=== PATIENT | male | born 1945 | race Caucasian/White ===

== ENCOUNTER 2018-01-10 06:44 | Day surgery (SDC) | payer MEDICARE, BC ==
[~2018-01-10 06:44] MED LIST: KETOROLAC TROMETHAMINE 0.45% 4 DROP/0.4 ML DROPERETTE OD PRN
[2018-01-10] MEDS: CYCLOPENTOLATE 0.2%/PHENYLEPHRINE 1% OPH SOLN 2 ML OD PRN ×3 (06:52→07:12)
[2018-01-10] MEDS: TETRACAINE HCL 0.5% OPH SOLN 2 ML OD PRN ×3 (06:52→07:34)
[2018-01-10] MEDS: TROPICAMIDE 1% OPH SOLN 3 ML OD PRN ×3 (06:52→07:12)
[2018-01-10] MEDS: BESIFLOXACIN HCL 0.6% OPH SUSP 5 ML BOTTLE OD PRN ×4 (06:53→07:55)
[2018-01-10] MEDS ORDERED: MIDAZOLAM 2 MG/2 ML INJ ONE (07:24)
[2018-01-10] MEDS: EPINEPHRINE INJ/PF 1 MG/1 ML AMPULE ONE ×2 (07:42)
[2018-01-10] MEDS: LIDOCAINE 1% INJ-PF (10 MG/ML) 30 ML SDV ONE ×2 (07:42)
[2018-01-10] MEDS: CHONDR SU A NA/HYALUR INTRAOC KIT (SURGICARE) ONE ×2 (07:43)
--- NOTE | 2018-01-10 18:30 | [facility] OPERATIVE REPORT E ---
[facility] Operative Report NAME: MARY BLACKMAN AGE: 72Y DATE OF SURGERY: 01/10/2018 ROOM: PREOPERATIVE DIAGNOSIS: CATARACT, RIGHT EYE. POSTOPERATIVE DIAGNOSIS: CATARACT, RIGHT EYE. OPERATION: Cataract extraction with insertion of an IOL of the right eye. SURGEON: COLE BENSON M.D. ANESTHESIA: Topical. PROCEDURE: After obtaining appropriate consent, the patient's right eye was prepped and draped in sterile fashion as well as the surgeon in a sterile manner and cataract surgery was started. First a paracentesis blade was used to make a side-port incision. Viscoelastic was used to inflate the anterior chamber. Next a 2.4 mm incision was made with a 2.4 mm blade, clear corneal temporally. A continuous capsulorrhexis was made using a cystotome and Utrata forceps. Following this hydrodissection was carried out to make the lens fully loose and mobile and it was rotated 90 degrees. Following this, a gnlrec-rcj-ppnbhgt technique was used to phacoemulsify the lens with a CDE of 10.82. The remaining cortex was removed with irrigation/aspiration. Provisc was instilled into the capsular bag to inflate the bag. A SN60WF, 20.0 diopter lens was placed. The remaining viscoelastic material was removed with irrigation/aspiration. Following this, the incision was found to be watertight. Besivance was instilled into the eye and a protective shield was placed over the eye. The patient returned to the postoperative recovery in stable condition. DICTATING PHYSICIAN: COLE BENSON M.D. 5020M [id number] PHY#: [id number] ID: [id number] JOB#: [id number] ACCT: [id number] cc:COLE BENSON M.D. >
--- NOTE | 2018-01-10 18:30 | [facility] DISCHARGE SUMMARY E ---
[facility] Discharge Summary NAME: MARY BLACKMAN AGE: 72Y ADMITTED: 01/10/2018 DISCHARGED: 01/10/2018 HOSPITAL COURSE: This is a 72-year-old gentleman who underwent cataract extraction of the right eye. DIAGNOSIS: CATARACT, RIGHT EYE. He underwent surgery because he was having trouble seeing words on the television. DISCHARGE INSTRUCTIONS: He should be on a regular diet. No bending at his waist, no heavy lifting. He should use his Besivance, Ilevro, and Durezol at 3 p.m. and 8 p.m. and sleep with a rigid shield. I will see him for his 1 day postoperative tomorrow. DICTATING PHYSICIAN: COLE BENSON M.D. [id number] [id number] Y#: [id number] ID: [id number] JOB#: [id number] ACCT: [id number] cc:COLE BENSON M.D. >
== END 2018-01-10 08:41 | disposition home or self-care (01) ==
LOC: SC 06:44
PROVIDERS: ATTEND Internal Medicine
DX: H25.11 Age-related nuclear cataract, right eye (principal); F17.210 Nicotine dependence, cigarettes, uncomplicated
CPT/HCPCS: 66984; V2632; J2250; J3490 ×2; A9270; J0171; 142

== ENCOUNTER 2018-01-31 07:42 | Day surgery (SDC) | payer MEDICARE, BC ==
[~2018-01-31 07:42] MED LIST changes: -KETOROLAC TROMETHAMINE 0.45% 4 DROP/0.4 ML DROPERETTE OD PRN; +KETOROLAC TROMETHAMINE 0.45% 4 DROP/0.4 ML DROPERETTE OS PRN
[2018-01-31] MEDS: TROPICAMIDE 1% OPH SOLN 3 ML OS PRN ×3 (08:37→08:57)
[2018-01-31] MEDS: BESIFLOXACIN HCL 0.6% OPH SUSP 5 ML BOTTLE OS PRN ×4 (08:37→09:33)
[2018-01-31] MEDS ORDERED: LIDOCAINE 1% INJ-PF (10 MG/ML) 30 ML SDV ONE (08:37)
[2018-01-31] MEDS: CYCLOPENTOLATE 0.2%/PHENYLEPHRINE 1% OPH SOLN 2 ML OS PRN ×3 (08:37→08:57)
[2018-01-31] MEDS: TETRACAINE HCL 0.5% OPH SOLN 2 ML OS PRN ×3 (08:38→09:08)
[2018-01-31] MEDS ORDERED: MIDAZOLAM 2 MG/2 ML INJ ONE (08:50)
[2018-01-31] MEDS ORDERED: ONDANSETRON HCL INJ/PF 4 MG/2 ML SDV ONE (08:50)
[2018-01-31] MEDS ORDERED: FENTANYL CITRATE INJ/PF 100 MCG/2 ML AMPUL ONE (08:50)
[2018-01-31] MEDS ORDERED: LIDOCAINE 1%/PHENYLEPHRINE 1.5% 1 ML VIAL ONE (09:22)
[2018-01-31] MEDS: CHONDR SU A NA/HYALUR INTRAOC KIT (SURGICARE) ONE ×2 (09:22)
[2018-01-31] MEDS: EPINEPHRINE INJ/PF 1 MG/1 ML AMPULE ONE ×2 (09:22)
--- NOTE | 2018-01-31 22:10 | [facility] DISCHARGE SUMMARY E ---
[facility] Discharge Summary NAME: MARY BLACKMAN AGE: 72Y ADMITTED: 01/31/2018 DISCHARGED: 01/31/2018 HOSPITAL COURSE: This is a 72-year-old male who underwent cataract extraction of the left eye. DIAGNOSIS: CATARACT, JULIANO EYE. He underwent surgery because he was having trouble reading small print like newspaper. DISCHARGE INSTRUCTIONS: He should be on a regular diet. No bending at his waist, no heavy lifting. He should use his Besivance, Ilevro, and Durezol at 3 p.m. and 8 p.m. and sleep with a rigid shield. I will see him for his 1 day postoperative tomorrow. DICTATING PHYSICIAN: COLE BENSON M.D. [id number] [id number] PHY#: [id number] ID: [id number] JOB#: [id number] ACCT: [id number] cc:COLE BENSON M.D. >
--- NOTE | 2018-01-31 22:10 | [facility] OPERATIVE REPORT E ---
[facility] Operative Report NAME: MARY BLACKMAN AGE: 72Y DATE OF SURGERY: 01/31/2018 ROOM: PREOPERATIVE DIAGNOSIS: CATARACT, LEFT EYE. POSTOPERATIVE DIAGNOSIS: CATARACT, LEFT EYE. OPERATION: Cataract extraction with insertion of an IOL of the left eye. SURGEON: COLE BENSON M.D. ANESTHESIA: Topical. PROCEDURE: After obtaining appropriate consent, the patient's left eye was prepped and draped in sterile fashion as well as the surgeon in a sterile manner and cataract surgery was started. First a paracentesis blade was used to make a side-port incision. Viscoelastic was used to inflate the anterior chamber. Next a 2.4 mm incision was made with a 2.4 mm blade, clear corneal temporally. A continuous capsulorrhexis was made using a cystotome and Utrata forceps. Following this hydrodissection was carried out to make the lens fully loose and mobile and it was rotated 90 degrees. Following this, a yzvwht-kgb-axajdzf technique was used to phacoemulsify the lens with a CDE of 8.97. The remaining cortex was removed with irrigation/aspiration. Provisc was instilled into the capsular bag to inflate the bag. A SN60WF, 19.0 diopter lens was placed. The remaining viscoelastic material was removed with irrigation/aspiration. Following this, the incision was found to be watertight. Besivance was instilled into the eye and a protective shield was placed over the eye. The patient returned to the postoperative recovery in stable condition. DICTATING PHYSICIAN: COLE BENSON M.D. 5020M 2206 PHY#: [id number] ID: [id number] JOB#: [id number] ACCT: [id number] cc:COLE BENSON M.D. >
== END 2018-01-31 10:24 | disposition home or self-care (01) ==
LOC: SC 07:42
PROVIDERS: ATTEND Internal Medicine
DX: H25.12 Age-related nuclear cataract, left eye (principal); Z96.1 Presence of intraocular lens; H40.89 Other specified glaucoma; Z79.82 Long term (current) use of aspirin; Z87.891 Personal history of nicotine dependence
CPT/HCPCS: 66984; V2632; J2250; J3490 ×2; A9270; J0171; J3010; J2405; J2370; 142